=== PATIENT | male | born 1985 | race Caucasian/White ===

== ENCOUNTER 2016-06-26 00:17 | Emergency (ER) | payer SELFPAY ==
[2016-06-26 01:04] VITALS: BP 130/81
--- NOTE | 2016-06-26 05:33 | Emergency Department Report ---
- General Chief complaint: Rectal Pain Stated complaint: HEMORRHOIDS Time Seen by Provider: 06/26/16 05:31 Source: patient Mode of arrival: Ambulatory Limitations: No Limitations - History of Present Illness Initial comments: Patient reports he was seen at [facility] one week ago and diagnosed with hemorrhoids completed his suppositories prescription, however he continues to have pain near the rectal area with rectal bleeding during bowel movements MD complaint: other Onset/Timin -: week(s) Location: genitals Severity: severe Severity scale (0 -10): 9 Quality: burning, aching Consistency: constant Improves with: none Worsens with: other (bowel movement) Context: none Associated symptoms: denies other symptoms Treatments Prior to Arrival: none - Related Data Previous Rx's Medication Instructions Recorded Last Taken Type Docusate Sodium [Colace] 100 mg PO BID PRN #30 capsule 06/26/16 Unknown Rx Hydrocortisone/Pramoxine [Analpram 1 applic RC QID #1 cream 06/26/16 Unknown Rx Hc 1% Cream] Ibuprofen [Motrin 800 MG tab] 800 mg PO Q8HR PRN #30 tablet 06/26/16 Unknown Rx Allergies Allergy/AdvReac Type Severity Reaction Status Date / Time No Known Allergies Allergy Unverified 12/06/14 15:26 Abscess Boil HPI - HPI Chief Complaint: Rectal Pain Stated Complaint: HEMORRHOIDS Home Medications: Previous Rx's Medication Instructions Recorded Last Taken Type Docusate Sodium [Colace] 100 mg PO BID PRN #30 capsule 06/26/16 Unknown Rx Hydrocortisone/Pramoxine [Analpram 1 applic RC QID #1 cream 06/26/16 Unknown Rx Hc 1% Cream] Ibuprofen [Motrin 800 MG tab] 800 mg PO Q8HR PRN #30 tablet 06/26/16 Unknown Rx Allergies/Adverse Reactions: Allergies Allergy/AdvReac Type Severity Reaction Status Date / Time No Known Allergies Allergy Unverified 12/06/14 15:26 ED Review of Systems ROS: Stated complaint: HEMORRHOIDS Other details as noted in HPI Constitutional: denies: chills, diaphoresis, fever, malaise, weakness Respiratory: denies: cough, orthopnea, shortness of breath, SOB with exertion, SOB at rest, stridor, wheezing Cardiovascular: denies: chest pain, palpitations, dyspnea on exertion, orthopnea , edema, syncope, paroxysmal nocturnal dyspnea Gastrointestinal: hematochezia, other (hemorrhoids). denies: abdominal pain, nausea, vomiting, diarrhea, constipation, hematemesis, melena Musculoskeletal: denies: back pain, joint swelling, arthralgia Skin: denies: rash, lesions, change in color, change in hair/nails, pruritus Neurological: denies: headache, weakness, numbness, paresthesias, confusion, abnormal gait, vertigo Hematological/Lymphatic: denies: easy bleeding, easy bruising, swollen glands ED Past Medical Hx - Past Medical History Previous Medical History?: No - Surgical History Past Surgical History?: No - Social History Smoking Status: Never Smoker Substance Use Type: None - Medications Home Medications: Home Medications Medication Instructions Recorded Confirmed Last Taken Type Docusate Sodium [Colace] 100 mg PO BID PRN #30 capsule 06/26/16 Unknown Rx Hydrocortisone/Pramoxine [Analpram 1 applic RC QID #1 cream 06/26/16 Unknown Rx Hc 1% Cream] Ibuprofen [Motrin 800 MG tab] 800 mg PO Q8HR PRN #30 tablet 06/26/16 Unknown Rx ED Physical Exam - General Limitations: No Limitations General appearance: alert, in no apparent distress - Head Head exam: Present: atraumatic - ENT ENT exam: Present: normal exam, mucous membranes moist. Absent: mucous membranes dry - Neck Neck exam: Present: normal inspection, full ROM - Respiratory Respiratory exam: Present: normal lung sounds bilaterally. Absent: respiratory distress, wheezes, rales, rhonchi, stridor, chest wall tenderness, accessory muscle use, decreased breath sounds, prolonged expiratory - Cardiovascular Cardiovascular Exam: Present: regular rate, normal rhythm, normal heart sounds. Absent: systolic murmur, diastolic murmur, rubs, gallop, clicks, JVD, S3, S4 - GI/Abdominal GI/Abdominal exam: Present: soft, normal bowel sounds. Absent: distended, tenderness, guarding, rebound, rigid - Rectal Rectal exam: Present: normal rectal tone, heme (-) stool, hemorrhoids (fleshy, no thrombosis or dark blue noted), tenderness, normal prostate. Absent: decreased rectal tone, black stool, bloody stool, fecal impaction, mass, prostate tenderness, prostate enlargement - Back Exam Back exam: Present: normal inspection, full ROM. Absent: CVA tenderness (R), CVA tenderness (L) - Neurological Exam Neurological exam: Present: alert, oriented X3, CN II-XII intact, normal gait, reflexes normal. Absent: motor sensory deficit - Psychiatric Psychiatric exam: Present: normal affect, normal mood. Absent: depressed, agitated - Skin Skin exam: Present: warm, dry, intact, normal color. Absent: rash ED Course Vital Signs 06/26/16 00:58 Temperature 98.6 F Pulse Rate 67 Respiratory 24 Rate Blood Pressure 130/81 O2 Sat by Pulse 98 Oximetry Lab Results 06/26/16 Range/Units 05:35 WBC 8.6 (4.5-11.0) K/mm3 RBC 5.28 H (3.65-5.03) M/mm3 Hgb 16.0 H (11.8-15.2) gm/dl Hct 45.1 (35.5-45.6) % MCV 86 (84-94) fl MCH 30 (28-32) pg MCHC 35 H (32-34) % RDW 13.8 (13.2-15.2) % Plt Count 158 (140-440) K/mm3 Lymph % (Auto) 36.7 H (13.4-35.0) % [place] % (Auto) 6.3 (0.0-7.3) % Eos % (Auto) 2.7 (0.0-4.3) % Baso % (Auto) 0.7 (0.0-1.8) % Lymph # 3.2 (1.2-5.4) K/mm3 Gar[place] # 0.5 (0.0-0.8) K/mm3 Eos # 0.2 (0.0-0.4) K/mm3 Baso # 0.1 (0.0-0.1) K/mm3 Seg Neutrophils % 53.6 (40.0-70.0) % Seg Neutrophils # 4.6 (1.8-7.7) K/mm3 ED Medical Decision Making - Lab Data Result diagrams: 06/26/16 05:35 Lab Results 06/26/16 Range/Units 05:35 WBC 8.6 (4.5-11.0) K/mm3 RBC 5.28 H (3.65-5.03) M/mm3 Hgb 16.0 H (11.8-15.2) gm/dl Hct 45.1 (35.5-45.6) % MCV 86 (84-94) fl MCH 30 (28-32) pg MCHC 35 H (32-34) % RDW 13.8 (13.2-15.2) % Plt Count 158 (140-440) K/mm3 Lymph % (Auto) 36.7 H (13.4-35.0) % [place] % (Auto) 6.3 (0.0-7.3) % Eos % (Auto) 2.7 (0.0-4.3) % Baso % (Auto) 0.7 (0.0-1.8) % Lymph # 3.2 (1.2-5.4) K/mm3 Garland # 0.5 (0.0-0.8) K/mm3 Eos # 0.2 (0.0-0.4) K/mm3 Baso # 0.1 (0.0-0.1) K/mm3 Seg Neutrophils % 53.6 (40.0-70.0) % Seg Neutrophils # 4.6 (1.8-7.7) K/mm3 Vital Signs 06/26/16 00:58 Temperature 98.6 F Pulse Rate 67 Respiratory 24 Rate Blood Pressure 130/81 O2 Sat by Pulse 98 Oximetry - Medical Decision Making During the course of ED, laboratory studies were ordered. Patient's guaiac stool was negative. He was sent home with prescriptions for Colace, Ibuprofen, and Analpram HC, instructed to follow with selective referrals given at discharge, he verbalize understanding - Differential Diagnosis hemorrhoids, Rectal prolapse, Anal fissure Critical care attestation.: If time is entered above; I have spent that time in minutes in the direct care of this critically ill patient, excluding procedure time. ED Disposition Clinical Impression: Hemorrhoids Qualifiers: Hemorrhoid type: first degree Qualified Code(s): K64.0 - First degree hemorrhoids Disposition: DISCHARGED TO HOME OR SELFCARE Is pt being admited?: No Does the pt Need Aspirin: No Condition: Stable Instructions: Hemorrhoids (ED) Additional Instructions: Take medication as directed. Follow with selective referrals given at discharge. Take warm sitz baths for 15 minutes 3 times a day and after each bowel movement. Eat more fresh fruits and vegetables. Increase bran intake. Drink 8-10 glasses of water per day. Prescriptions: Hydrocortisone/Pramoxine [Analpram Hc 1% Cream] 1 applic RC QID #1 cream Docusate Sodium [Colace] 100 mg PO BID PRN #30 capsule PRN Reason: Stool Softner Ibuprofen [Motrin 800 MG tab] 800 mg PO Q8HR PRN #30 tablet PRN Reason: Pain Referrals: PRIMARY CARE, [Primary Care Provider] - 3-5 Days [facility] [Outside] - 3-5 Days Forms: Work/School Release Form(ED) Time of Disposition: 06:21
[2016-06-26 05:49] LABS: Basophils % (Auto) 0.7 % (0.0-1.8); Eosinophils % (Auto) 2.7 % (0.0-4.3); Hematocrit 45.1 % (35.5-45.6); Mean Corpuscular HGB Conc 35 % (32-34); Mean Corpuscular Hemoglobin 30 pg (28-32); Mean Corpuscular Volume 86 fl (84-94); Platelet Count 158 K/mm3 (140-440); Red Blood Count 5.28 M/mm3 (3.65-5.03); Red Cell Distribution Width 13.8 % (13.2-15.2); White Blood Count 8.6 K/mm3 (4.5-11.0)
[2016-06-27] MEDS ORDERED: NACL 0.45% 1000 ML 1,000 ML IV ONE (03:50)
== END 2016-06-26 06:41 | disposition home or self-care (01) ==
LOC: ED 00:17
DX: K64.0 First degree hemorrhoids (principal)
CPT/HCPCS: 36415; 85025; 99283